=== PATIENT | male | born 1980 | race African-American/Black ===

== ENCOUNTER 2016-09-29 08:37 | Observation (INO) ==
--- NOTE | 2016-09-29 08:54 | Urology History & Physical ---
Date of Encounter: 09/29/16 Time of Encounter: 08:52 Assessment and Plan (1) Calculus of kidney Current Visit: Yes Status: Acute 36 -year-old man with a history of a right proximal ureteral stone and flank pain. His pain was not adequately controlled. He has been admitted for pain control. We will see how he does overnight. If his pain does not improve, we will proceed with a right ureteroscopy, laser lithotripsy, and stent placement. He was informed of the risks of the surgery which include but are not limited to bleeding, infection, injury to other structures, need for further procedures , incomplete treatment, stent irritation, and the risk of anesthesia. He is willing to proceed. History of Present Illness Chief complaint: Right flank pain HPI: Mr. Marroquin is a 36 year old male who presents with a history of right flank pain. He had a CT scan on September 28, 2016 which showed a 6 mm right proximal ureteral stone. The pain radiates to the front. It is sharp. Matteson and Toradol seemed to help. He denies any fevers or chills. He denies any history of kidney stones. Past Med Surg Social Fam HX - Past Medical History Medical history: seizures - Social History Smoking Status: Current every day smoker Smokeless Tobacco Status: No Alcohol use: occasionally Drug use: none - Family History Father Hx Family Genitourinary Disorders: No (NO kidney stones) Medications and Allergies Ciprofloxacin HCl [Cipro] 500 mg PO DAILY #7 tablet 04/27/16 [Rx] HYDROcodone/Acet 5/325 mg [Matteson 5-325 mg] 1 tab PO Q6H PRN #15 tab 04/27/16 [Rx ] metroNIDAZOLE [Flagyl] 500 mg PO BID #20 tablet 04/27/16 [Rx] HYDROcodone/Acet 5/325 mg [Matteson 5-325 mg] 1 - 2 tab PO QID PRN #15 tab [Rx] Ketorolac [Toradol] 10 mg PO TID PRN #10 tablet 09/28/16 [Rx] Promethazine [Phenergan] 12.5 mg PO Q6HR PRN #10 tablet 09/28/16 [Rx] Allergies codeine Allergy (Verified 04/27/16 09:04) Hives Review of Systems - Constitutional no chills, no fever(s) - EENT Nose, mouth and throat: no dizziness - Cardiovascular no chest pain - Respiratory no dyspnea - Gastrointestinal nausea, no vomiting - Genitourinary flank pain, no hematuria - Musculoskeletal no back pain - Integumentary no erythema, no rash - Neurological no weakness - Psychiatric no suicidal ideation - Hematologic/Lymphatic no easy bleeding - Allergic/Immunologic no wheezing Exam - General physical appearance Present: well developed, well nourished, no distress - Eyes Absent: icteric - ENT Present: normal nares - Neck Present: trachea midline - Respiratory Present: normal respiratory effort - Cardiovascular Cardiovascular exam IM: RRR - Abdomen Abdomen: Present: soft Urology Results - Labs All other labs normal. - Imaging CT scan - abdomen: report reviewed, image reviewed CT scan - pelvis: report reviewed, image reviewed
[2016-09-29] MEDS ORDERED: Naloxone 0.4 MG/ML INJ IVP PRN (08:55)
[2016-09-29] MEDS ORDERED: Acetaminophen 325 MG TABLET PO PRN (08:55)
[2016-09-29] MEDS ORDERED: Ondansetron 4 MG/2 ML VIAL IVP PRN (08:55)
[2016-09-29] MEDS: Ringers Solution, Lactated 1,000 ML IVC SCH ×2 (09:49→22:16)
[2016-09-29] MEDS: Nicotine 21 MG PATCH.TD24 TD SCH (09:49)
[2016-09-29] MEDS: *HR* HYDROmorphone (PF) 1 MG/ML SYRINGE IVP PRN ×6 (09:49→22:14)
[2016-09-29] MEDS: *HR* OxyCODONE Immed Rel 5 MG TABLET PO PRN ×2 (11:31→16:57)
[2016-09-29] MEDS: Divalproex (12 HR) 250 MG TABLET PO SCH ×2 (16:11→22:22)
--- NOTE | 2016-09-29 22:16 | Anesthesia Evaluation PreOp ---
Date of Encounter: 09/29/16 Time of Encounter: 23:11 - Past History Planned Operation: Right Ureteroscopic Stone Extraction Cardiac History: Denies any Significant Hx Pulmonary History: Smoker (22 years), Snore COWLMAN History: Seizures (well controlled on meds) Other Medical History: Renal (kidney stones), Other (obesity BMI=68.5) Anesthesia History: No Prior Anesthetic Complications, Past Anesthesia Alcohol Use: occasionally Drug use: none Medications and Allergies HYDROcodone/Acet 5/325 mg [Hurst 5-325 mg] 1 - 2 tab PO QID PRN #15 tab [Rx] Ketorolac [Toradol] 10 mg PO TID PRN #10 tablet 09/28/16 [Rx] Promethazine [Phenergan] 12.5 mg PO Q6HR PRN #10 tablet 09/28/16 [Rx] Divalproex (12 HR) [Depakote (12 HR)] 750 mg PO TID 09/29/16 [History] Naproxen Sodium [Aleve] 220 mg PO BID 09/29/16 [History] Allergies codeine Allergy (Verified 04/27/16 09:04) Hives - Meds/Allergy Pre-op Review Medications Reviewed: Yes Allergies Reviewed: Yes Beta Blockers on Current Med List: No Anesthesia Results - Imaging EKG: report reviewed (04/27/2016 SR, NSST abnormality) Anesthesia Exam Vital Signs/O2 Sat, Most Current Temp Pulse Resp BP Pulse Ox 98.3 F 85 19 176/124 93 09/29/16 20:21 09/29/16 20:21 09/29/16 20:21 09/29/16 20:21 09/29/16 20:21 Height: 6'1''/1.85 m Weight: 241 lbs/109.588 kg Pain Scale: 3 Pain Scale Used: Numeric (1 - 10) - HEENT Pupil (Motor): EOMI Mallampati: II Teeth: Edentulous Oral Opening: Greater than 3 - COWLMAN LOC: Oriented [place] Motor: Normal RUE, Normal LUE, Normal RLE, Normal LLE, Normal Face COWL[place] Sensory: Normal: RUE, LUE, RLE, LLE, Face - Cardiac Rhythm: Regular Murmur: None - Pulmonary Breath Sounds: bilateral Clear Respiratory Effort: Symmetrical Anesthesia Assess/Plan ASA Score: 2 Modified [place] Scale for Level of Consciousness: Cooperative, oriented, and tranquil Anesthetic Plan: General Monitoring Plan: Standard Monitors Recovery Plan: PACU
[2016-09-30] MEDS: *HR* HYDROmorphone (PF) 1 MG/ML SYRINGE IVP PRN ×5 (00:36→11:24)
[2016-09-30] MEDS: *HR* OxyCODONE Immed Rel 5 MG TABLET PO PRN ×3 (01:38→13:36)
[2016-09-30 05:37] LABS: Basophils # 0.1 K/mcL (0.0-0.2); Basophils % 0.3 %; Eosinophils # 0.2 K/mcL (0.0-0.6); Eosinophils % 0.8 %; Hematocrit 39.1 % (37.5-50.1); Hemoglobin 13.3 g/dL (12.9-16.9); Immature Granulocytes % 0.5 % (0-4); Lymphocytes # 3.5 K/mcL (0.6-4.6); Lymphocytes % 18.5 %; Mean Corpuscular Hemoglobin 30.6 pg (28.0-33.3); Mean Corpuscular Volume 89.9 fL (83.0-100.0); Mean Platelet Volume 10.8 fL (9.4-12.4); Monocytes # 1.5 K/mcL (0.0-1.3); Monocytes % 7.8 %; Neutrophils # 13.8 K/mcL (1.6-8.9); Platelet Count 253 K/mcL (140-400); Red Blood Count 4.35 M/mcL (4.19-5.50); Red Cell Distribution Width 13.8 % (11.5-14.5); Segmented Neutrophils % 72.1 %
[2016-09-30 05:51] LABS: BUN/Creatinine Ratio 7 (6-26); Blood Urea Nitrogen 8 mg/dL (8-26); Calcium 8.7 mg/dL (8.6-10.8); Carbon Dioxide 24 mEq/L (19-29); Chloride 104 mEq/L (98-109); Glucose 106 mg/dL (70-99); Osmolality,Calculated 283 (280-300); Potassium 3.6 mEq/L (3.5-4.5); Sodium 137 mEq/L (136-145); eGFR For African Americans > 60 (> 60); eGFR For Non-African Americans > 60 (> 60)
[2016-09-30] MEDS ORDERED: Ringers Solution, Lactated 1,000 ML IVC SCH ×2 (07:15→18:12)
--- NOTE | 2016-09-30 07:16 | Urology Progress Note ---
Date of Encounter: 09/30/16 Time of Encounter: 07:15 - Assessment and Plan (1) Calculus of kidney Current Visit: Yes Status: Acute Assessment and plan: 36 year old man with right proximal ureteral stone. 1. Plan for right ureteroscopy, laser lithotripsy, and stent placement. All risks were informed. He is willing to proceed. Progress Note Narrative: Doing okay. Still with right flank pain. He had some breakfast with cereal. Will keep NPO now. Objective Initial Vital Signs Temp Pulse Resp BP Pulse Ox 98.5 F 68 18 170/119 95 09/29/16 11:27 09/29/16 11:27 09/29/16 11:27 09/29/16 11:27 09/29/16 11:27 - General physical appearance Present: well developed, well nourished, no distress - Respiratory Present: normal respiratory effort - Abdomen Present: soft - Labs 09/30/16 05:06 09/30/16 05:06 Diabetes panel 09/30/16 Range/Units 05:06 Sodium 137 (136-145) mEq/L Potassium 3.6 (3.5-4.5) mEq/L Chloride 104 (98-109) mEq/L Carbon Dioxide 24 (19-29) mEq/L BUN 8 (8-26) mg/dL Creatinine 1.20 (0.72-1.25) mg/dL Glucose 106 H (70-99) mg/dL Calcium 8.7 (8.6-10.8) mg/dL Calcium panel 09/30/16 Range/Units 05:06 Calcium 8.7 (8.6-10.8) mg/dL Pituitary panel 09/30/16 Range/Units 05:06 Sodium 137 (136-145) mEq/L Potassium 3.6 (3.5-4.5) mEq/L Chloride 104 (98-109) mEq/L Carbon Dioxide 24 (19-29) mEq/L BUN 8 (8-26) mg/dL Creatinine 1.20 (0.72-1.25) mg/dL Glucose 106 H (70-99) mg/dL Calcium 8.7 (8.6-10.8) mg/dL Adrenal panel 09/30/16 Range/Units 05:06 Sodium 137 (136-145) mEq/L Potassium 3.6 (3.5-4.5) mEq/L Chloride 104 (98-109) mEq/L Carbon Dioxide 24 (19-29) mEq/L BUN 8 (8-26) mg/dL Creatinine 1.20 (0.72-1.25) mg/dL Glucose 106 H (70-99) mg/dL Calcium 8.7 (8.6-10.8) mg/dL - VTE Documentation of Mechanical Device: Intermittent pneumatic compression device Consult Discharge Plan - Plan Referrals: Alisia Tovar MD [Primary Care Provider] - 10/10/16 11:00 am
[2016-09-30] MEDS: Divalproex (12 HR) 250 MG TABLET PO SCH ×2 (07:26→12:04)
[2016-09-30] MEDS: Nicotine 21 MG PATCH.TD24 TD SCH (07:27)
[2016-09-30] MEDS ORDERED: amLODIPine 5 MG TABLET PO SCH (11:45)
[2016-09-30] MEDS ORDERED: Levofloxacin 500 MG/100 ML 500 MG/100 ML BAG IVPB ONE ×2 (15:00→19:00)
[2016-09-30] MEDS ORDERED: Acetaminophen IV 1,000 MG/100 ML INFUS..BTL ONE (15:50)
--- NOTE | 2016-09-30 17:46 | Operative Note ---
Date of procedure: 09/30/16 Pre-op diagnosis: right proximal 6 mm ureteral stone. Post-op diagnosis: same Procedure: Right ureteroscopic stone extraction with holmium laser lithotripsy. Right retrograde pyelogram. Right ureteral stent placement. Anesthesia: GETA Surgeon: Cameron Vázquez Estimated blood loss (cc): 0 Specimen: Right ureteral stone Condition: stable Disposition: PACU Procedure in Detail: PROCEDURE IN DETAIL: Patient was taken back to the operating room, positioned supine on the operating table. Anesthesia was applied without complication. They were moved into dorsal lithotomy. Careful attention was maintained to cushion all pressure points for patient's safety. They were prepped and draped in sterile fashion. Time-out was performed with the proper patient and procedure. A 21-[place] rigid cystoscope was inserted into the bladder without difficulty. Systematic examination of bladder revealed no abnormalities. The ureteral orifice was cannulated using a 5-[place] ureteral Catheter and a retrograde pyelogram was performed using Isovue. A filling defect was identified which corresponded to the stone in the proximal right ureter. At that point, a zip wire was placed through the 5-[place] and confirmed in the renal pelvis with fluoroscopy. An 8-10 dilator was then placed over the zip wire to passively dilate the ureteral orifice. The flexible ureteroscope would not pass and I eventually placed 11 x 13, 36 flank access sheath. This passed without resistance. I then placed the flexible ureteroscope through the access sheath. At that point, the stone was encountered and I felt that it required fragmentation for safe extraction. A 200 micron holmium laser fiber on a setting of 8 and 800 was used to fragment the stone into multiple pieces. The fragments were individually basketed out of the ureter with a 1.9 tipless basket. All stone in the ureter was removed. A 4.8 x 26 ureteral stent was placed over the zip wire under fluoroscopy without complication. No string was left attached to the stent. The bladder was drained.
--- NOTE | 2016-09-30 17:49 | Discharge Summary ---
Date of Encounter: 09/30/16 Time of Encounter: 17:47 - Discharge Diagnosis (1) Ureteral stone with hydronephrosis Priority: Primary Status: Resolved - Discharge Medications Prescriptions: Oxycodone HCl/Acetaminophen [Percocet 5-325 mg Tablet] 1 each PO Q4H PRN #30 tablet PRN Reason: Pain Phenazopyridine HCl [Pyridium] 200 mg PO TIDAC PRN #30 tab PRN Reason: burning with urination Home Medications: Ketorolac [Toradol] 10 mg PO TID PRN #10 tablet 09/28/16 [Rx] Divalproex (12 HR) [Depakote (12 HR)] 750 mg PO TID 09/29/16 [History] Naproxen Sodium [Aleve] 220 mg PO BID 09/29/16 [History] Oxycodone HCl/Acetaminophen [Percocet 5-325 mg Tablet] 1 each PO Q4H PRN #30 tablet 09/30/16 [Rx] Phenazopyridine HCl [Pyridium] 200 mg PO TIDAC PRN #30 tab 09/30/16 [Rx] Allergies/Adverse Reactions: Allergies codeine Allergy (Verified 04/27/16 09:04) Hives Labs on day of discharge: Labs from last 24 hours 09/30/16 09/30/16 05:06 05:06 WBC 19.2 H RBC 4.35 Hgb 13.3 Hct 39.1 MCV 89.9 MCH 30.6 MCHC 34.0 RDW 13.8 Plt Count 253 MPV 10.8 Immature Gran % 0.5 Seg Neutrophils % 72.1 Lymphocytes % 18.5 Monocytes % 7.8 Eosinophils % 0.8 Basophils % 0.3 Neutrophils # 13.8 H Lymphocytes # 3.5 Monocytes # 1.5 H Eosinophils # 0.2 Basophils # 0.1 Sodium 137 Potassium 3.6 Chloride 104 Carbon Dioxide 24 BUN 8 Creatinine 1.20 Est GFR ( Amer) > 60 Est GFR (Non-Af Amer) > 60 BUN/Creatinine Ratio 7 Glucose 106 H Calculated Osmolality 283 Calcium 8.7 Date of admission: 09/29/16 08:41 Primary care physician: Alisia Tovar Discharging clinician: Cameron Vázquez Anticipated date of discharge: 09/30/16 - Patient Status Disposition: Home, Self-Care Condition: Good Functional capacity at discharge: independent ambulation Overall status at discharge: patient is progressing back to baseline - Discharge Instructions Follow Up With: Alisia Tovar MD [Primary Care Provider] - 10/10/16 11:00 am Cameron Vázquez MD [Partnered Physician] - (Call office on Monday to arrange cystoscopy with stent removal) Additional Instructions: Expect stent discomfort including urgency, frequency, burning on urination, blood in the urine, flank pain during urination. These symptoms are normal. Call if symptoms excessive. Call if fever over 101 Stent will be removed in the office in the near future. - Diet and Activity Activity: increase activity as tolerated Diet: advance to your usual diet - Hospital Course Hospital course: Mr. Marroquin is a 36 year old male admitted with a right proximal ureteral stone with hydronephrosis. Status post successful stone extraction and stent. Plan to discharge when pain control - Time Spent with Patient Total time spent providing and/or coordinating discharge services: Exam Initial Vital Signs Temp Pulse Resp BP Pulse Ox 98.5 F 68 18 170/119 95 09/29/16 11:27 09/29/16 11:27 09/29/16 11:27 09/29/16 11:27 09/29/16 11:27 - General physical appearance Present: well developed, no distress - VTE Documentation of Mechanical Device: Intermittent pneumatic compression device
[2016-09-30] MEDS ORDERED: Naloxone 0.4 MG/ML INJ IVP PRN (18:12)
[2016-09-30] MEDS ORDERED: Ketorolac 30 MG/ML VIAL IVP PRN (18:12)
[2016-09-30] MEDS ORDERED: *HR* OxyCODONE Immed Rel 5 MG TABLET PO PRN (18:12)
[2016-09-30] MEDS ORDERED: *HR* HYDROmorphone (PF) 1 MG/ML SYRINGE IVP PRN (18:12)
[2016-09-30] MEDS ORDERED: Acetaminophen 325 MG TABLET PO PRN (18:12)
[2016-09-30] MEDS ORDERED: Ondansetron 4 MG/2 ML VIAL IVP PRN (18:12)
--- NOTE | 2016-09-30 18:15 | Anesthesia Evaluation Post Op ---
Date of Encounter: 09/30/16 Time of Encounter: 18:12 - Vital Signs Vital Signs: Vital Signs/O2 Sat/Glucose, Most Current Temp Pulse Resp BP Pulse Ox 09/30/16 17:40 98.7 F 97 16 184/98 95 - Lungs Lungs: Clear Ascult./Percussion - Airway Airway: Non-obstructed - Cardiovascular Regular Rate - Mental Status Mental Status: Alert & Oriented, Answers Appropriately - Pain Pain Scale: 0 Pain Scale used: Numeric (1 - 10) - Nausea Vomiting Nausea Vomiting: Not Present - Hydration Hydration: Tolerates oral liquids, Has not voided (Pt wishes to go to floor so he can use the bathroom "for #2" he refuses BedPan use in PACU) - Discharge PostOp Status: Transfer Patient to floor Anes Supervising Prov Stmt: Pt seen/evaluated, VSS, Hypertensive per baseline and had antihypertensive meds available per Floor. Pt has met criteria for discharge to floor. - MD Zackery
[2016-09-30 18:57] VITALS: BP 166/72
[2016-09-30] MEDS ORDERED: Divalproex (12 HR) 250 MG TABLET PO SCH ×2 (21:00)
[2016-10-01] MEDS ORDERED: Nicotine 21 MG PATCH.TD24 TD SCH (09:00)
[2016-10-01] MEDS ORDERED: Levofloxacin 500 MG/100 ML 500 MG/100 ML BAG IVPB SCH (09:00)
[2016-10-01] MEDS ORDERED: amLODIPine 5 MG TABLET PO SCH (09:00)
== END 2016-09-30 20:02 | disposition home or self-care (01) ==
LOC: 2ANU
PROVIDERS: ADMIT Urology; ATTEND Urology

== ENCOUNTER 2019-04-19 13:48 | Inpatient (IN) ==
[2019-04-19 14:35] LABS: Bilirubin,Urine Negative (Negative); Blood,Urine Negative (Negative); Glucose,Urine (UA) Normal (Normal); Ketones,Urine Negative (Negative); Leukocyte Esterase,Urine Small (Negative); Nitrite,Urine Negative (Negative); Protein,Urine 30 mg/dL (Neg-Trace); Specific Gravity,Urine 1.025 (1.010-1.025); Urobilinogen,Urine Normal (Normal)
[2019-04-19 14:37] LABS: Basophils # 0.1 K/mcL (0.0-0.2); Basophils % 0.3 %; Eosinophils # 0.2 K/mcL (0.0-0.6); Hematocrit 45.7 % (37.5-50.1); Hemoglobin 15.8 g/dL (12.9-16.9); Immature Granulocytes % 0.4 % (0-4); Lymphocytes # 4.2 K/mcL (0.6-4.6); Lymphocytes % 21.3 %; Mean Corpuscular HGB Conc 34.6 g/dL (31.6-35.5); Mean Corpuscular Hemoglobin 30.9 pg (28.0-33.3); Mean Corpuscular Volume 89.3 fL (83.0-100.0); Mean Platelet Volume 9.9 fL (9.4-12.4); Monocytes # 0.9 K/mcL (0.0-1.3); Monocytes % 4.4 %; Neutrophils # 14.2 K/mcL (1.6-8.9); Platelet Count 362 K/mcL (140-400); Red Blood Count 5.12 M/mcL (4.19-5.50); Red Cell Distribution Width 13.4 % (11.5-14.5); Segmented Neutrophils % 72.6 %; White Blood Count 19.5 K/mcL (4.3-11.1)
[2019-04-19 14:37] LABS: Bacteria,Urine None Seen per hpf (None-Few); Clarity,Urine Slightly Hazy (Clear); Color,Urine Yellow (Yellow); Hyaline Casts,Urine None Seen per lpf (None-Few); Squamous Epithelial Cell,Urine Many per lpf (None-Few)
[2019-04-19 14:57] LABS: BUN/Creatinine Ratio 10 (6-26); Blood Urea Nitrogen 8 mg/dL (6-20); Calcium 9.1 mg/dL (8.6-10.3); Carbon Dioxide 25 mEq/L (23-29); Chloride 104 mEq/L (98-107); Ethanol < 10 mg/dL (Less than 10); Glucose 133 mg/dL (70-105); Osmolality,Calculated 286 (280-300); Potassium 3.6 mEq/L (3.5-5.1); Sodium 138 mEq/L (136-145); eGFR For African Americans > 60 (> 60); eGFR For Non-African Americans > 60 (> 60)
[2019-04-19 14:59] LABS: Amphetamine Screen,Urine Negative ng/mL (Cutoff=1000); Barbiturate Screen,Urine Negative ng/mL (Cutoff=200); Benzodiazepines Screen,Urine Negative ng/mL (Cutoff=200); Cannabinoid Screen,Urine Positive ng/mL (Cutoff = 50); Cocaine Screen,Urine Negative ng/mL (Cutoff= 300); Opiate Screen,Urine Negative ng/mL (Cutoff=300); Phencyclidine Screen,Urine Negative ng/mL (Cutoff=25)
[2019-04-19 15:07] LABS: Mucus,Urine Many (Few)
[2019-04-19 15:08] LABS: RBC,Urine 0-3 per hpf (0-3)
[2019-04-19] MEDS ORDERED: *HR* LORazepam 2 MG/ML VIAL IM PRN (17:09)
[2019-04-19] MEDS ORDERED: traZODone 50 MG TABLET PO PRN (17:09)
[2019-04-19] MEDS ORDERED: Acetaminophen 325 MG TABLET PO PRN (17:09)
[2019-04-19] MEDS ORDERED: MOM Conc 10 ML UD.LIQ PO PRN (17:09)
[2019-04-19] MEDS ORDERED: hydrOXYzine pamoate 25 MG CAPSULE PO PRN (17:09)
[2019-04-19] MEDS ORDERED: Haloperidol Lactate 5 MG/ML VIAL IM PRN (17:09)
[2019-04-19] MEDS ORDERED: Mag Hydrox/Al Hydrox/Simeth 30 ML UDC PO PRN (17:09)
[2019-04-19] MEDS ORDERED: *HR* LORazepam 1 MG TABLET PO PRN (17:09)
[2019-04-19] MEDS ORDERED: Nicotine 21 MG PATCH.TD24 TD SCH (19:00)
[2019-04-20] MEDS: Nicotine 21 MG PATCH.TD24 TD SCH (17:53)
[2019-04-20] MEDS: Divalproex (12 HR) 250 MG TABLET PO SCH ×2 (17:57→21:36)
[2019-04-20] MEDS: amLODIPine 5 MG TABLET PO SCH (17:57)
[2019-04-20] MEDS ORDERED: traZODone 50 MG TABLET PO SCH (21:00)
[2019-04-21] MEDS: amLODIPine 5 MG TABLET PO SCH (08:55)
[2019-04-21] MEDS: Nicotine 21 MG PATCH.TD24 TD SCH (08:57)
[2019-04-21] MEDS: Divalproex (12 HR) 250 MG TABLET PO SCH (09:33)
[2019-04-21 10:14] VITALS: BP 154/97
== END 2019-04-21 12:15 | disposition home or self-care (01) | DRG 885 ==
LOC: EMEROOARM 13:48 → 1ANU 13:48 → SUATTDRO 17:09 → 1ANU 17:54
PROVIDERS: ADMIT Psychiatry & Neurology Psychiatry; ATTEND Psychiatry & Neurology Forensic Psychiatry